=== PATIENT | male | born 1965 | race Caucasian/White ===

== ENCOUNTER 2025-04-05 16:39 | Emergency (ER) | payer MEDICAID, SELFPAY ==
[2025-04-05 16:41] VITALS: BP 195/97; PULSE 85; RESP 16; TEMP 36.9; O2SAT 99
[2025-04-05 17:30] VITALS: BMI 30.1
--- NOTE | 2025-04-05 17:58 | EX.ED.DYSGE1 ---
HPI History of Present Illness Chief Complaint: Substance Abuse Narrative Narrative: Patient is a 59-year-old male who presented to the emergency department from [facility] with a chief complaint of having fentanyl in his drug screen. Per the patient he states that recently his mother and [facility] let him go early to go be with his mother. He states that after this he smoked crack and he did not know that this was mixed with fentanyl. He states that he did this for 2 days and he has no symptoms at this point in time he states that the [facility] wanted him to be sent to the emergency department to be further evaluated. Otherwise patient feels that he is doing well PFSH PFS Allergy/AdvReac Type Severity Reaction Status Date / Time No Known Allergies Allergy Verified 04/05/25 16:44 Social History Smoking Status: Current every day smoker tobacco type: cigarettes ROS ROS ED ROS Narrative Constitutional: Denies any fevers, chills, headaches, lightheadedness Eyes: Denies double vision blurry vision Cardiovascular: Denies chest pain Respiratory: No shortness of breath Abdomen: Denies abdominal pain nausea vomit diarrhea : Denies any urinary symptoms Neurological: Denies any numbness, weakness, tingling Musculoskeletal: Denies any back pain Skin: Denies any rashes or lesions EXAM Physical Exam Narrative Exam Narrative: General: Patient lying in bed rest comfortably did not appear to be in acute distress Head: Atraumatic, normocephalic Eyes: PERRL bilaterally, EOMI bilateral, no conjunctival injection noted Neck: Soft, supple, trachea midline Cardiovascular: Regular rate and rhythm Respiratory: Clear to auscultation bilaterally Abdomen: Soft, nondistended, no tenderness to palpation Extremities: +5/5 strength noted in the bilateral lower extremities Neurological: Patient follow commands knew he was at [facility] the year is 2024 Skin: Warm, dry, tact no rashes or lesions noted Const Vital Signs: 04/05/25 16:41 04/05/25 18:14 Temperature 98.4 F Temperature Source Oral Pulse Rate 85 72 Respiratory Rate 16 Blood Pressure 195/97 H 163/82 H Blood Pressure Mean 129 109 Pulse Ox 99 Oxygen Delivery Method Room Air MDM MDM MDM Narrative Medical decision making narrative: Patient is a 59-year-old male who presented to the emergency department for medical screening exam from [facility] after found fentanyl in his urine. Once again the patient is completely asymptomatic and has no complaints he did this for 2 days and feels well. At this point time the patient is medically cleared and do not feel that he warrants any further testing. He has a will return to [facility] and it was encouraged to return with worsening symptoms or concerns. Patient manual blood pressure was noted to be 163/82 and is asymptomatic therefore do not feel the need to treat this at this point time. All course concerns answered discharged home in stable condition. Discharge Plan Triage Chief Complaint: Substance Abuse ED Provider: Tomas Woods Dx/Rx/DC Orders Clinical Impression: Substance abuse, Depression Primary Care Provider: Vanessa Palencia Referrals: Vanessa Palencia MD [Primary Care Provider] - Activity Restrictions/Additional Instructions: You have been medically cleared in the emergency department to return to [facility]. Return with worsening symptoms or other concerns Print Language: Polish Disposition Disposition: Home, Self Care
[2025-04-05 18:14] VITALS: BP 163/82; PULSE 72
== END 2025-04-05 18:41 | disposition home or self-care (01) ==
PROVIDERS: Emergency Provider Emergency Medicine; PCP Family Medicine; Visit Provider Emergency Medicine
DX: F19.19 Other psychoactive substance abuse with unspecified psychoactive substance-induced disorder (principal); F17.210 Nicotine dependence, cigarettes, uncomplicated; F32.A Depression, unspecified
CPT/HCPCS: 99282